=== PATIENT | female | born 1995 | race Caucasian/White ===

== ENCOUNTER 2016-08-17 11:58 | Emergency (ER) | payer BC ==
--- NOTE | ~2016-08-17 | CR21 ---
[facility] A Service of [facility] & [facility] RADIOLOGY TEXT RESULTS PATIENT: JM BARRERA LOCATION: SED : [birth year] UNIT #: [id number] AGE: [address]: Ashanti Franklin APRN SEX: F ORDER DR: [id number] [place] [id number] E MR#: [id number] Acc #: [id number] NAME: JM BARRERA : 1995 SEX: F STUDY DATE/TIME: 08/17/2016 11:15 UNIT: SED ROOM: STUDY DESCRIPTION: CR Ankle Min 3 Views Rt Attending Physician: Ashanti Franklin A.P.R.N. Ordering Physician: Ashanti Schuster A.P.R.N. Primary Care Physician: Segun Marrero M.D. MEDICAL IMAGING REPORT This report is preliminary unless electronic signature is present. EXAM Right ankle series 08/17/2016. HISTORY Missed a step. Hurt ankle. [place] one step [place] [facility] [place]. Pain, bruise, swelling lateral medial malleolus. Symptoms began yesterday. FINDINGS AP, lateral and oblique radiographs of the right ankle are presented. Normal bony mineralization. No traumatic fracture or malalignment. Small os trigonum posterior aspect of the ankle on lateral view. The ankle mortise joint is intact. No soft tissue defect, subcutaneous air or radiodense foreign body. There may be some mild soft tissue swelling adjacent to the medial malleolus. This could be simply a reflection of the patient's body habitus. Correlate with exam and mechanism of injury. Dictated by... Jeevan Jack M.D. THIS IS AN ELECTRONICALLY VERIFIED REPORT Jeevan Jack M.D. at 08/18/2016 5:56 PM Mya TD: 08/17/2016 12:49 JOB #: [id number] MEDICAL IMAGING REPORT Page 1 of 1
[~2016-08-17 11:58] MED LIST: COLACE PO; HORMONE PILL; ZOLOFT PO
== END 2016-08-17 12:50 | disposition home or self-care (01) ==
LOC: SED 11:58
DX: S93.401A Sprain of unspecified ligament of right ankle, initial encounter (principal); F32.9 Major depressive disorder, single episode, unspecified; W18.30XA Fall on same level, unspecified, initial encounter; Y92.009 Unspecified place in unspecified non-institutional (private) residence as the place of occurrence of the external cause
CPT/HCPCS: 29515; 73610; 99283

== ENCOUNTER 2016-11-09 08:05 | Emergency (ER) | payer BC ==
--- NOTE | ~2016-11-09 | CR71 ---
[facility]. [facility] A Service of [facility] & [facility] RADIOLOGY TEXT RESULTS PATIENT: JM BARRERA LOCATION: SED : [birth year] UNIT #: [id number] AGE: [address]: Carlos Perez MD SEX: F ORDER DR: [id number] [address] [address] [id number] E MR#: [id number] Acc #: [id number] NAME: JM BARRERA : 1995 SEX: F STUDY DATE/TIME: 11/09/2016 10:15 UNIT: SED ROOM: STUDY DESCRIPTION: CR Chest Single View Attending Physician: Carlos Perez M.D. Ordering Physician: Carlos Perez M.D. Primary Care Physician: Segun Marrero M.D. MEDICAL IMAGING REPORT This report is preliminary unless electronic signature is present. EXAM AP chest. HISTORY Chest pain and cough for the past 2 days. TECHNIQUE A single AP view of the chest was obtained. FINDINGS A single AP portable view of the chest shows both lungs to be clear. The heart is normal in size. The mediastinal contour is normal. No significant bone abnormalities are seen. IMPRESSION Normal portable chest. Dictated by... Liam Valdez M.D. THIS IS AN ELECTRONICALLY VERIFIED REPORT Liam Valdez M.D. at 11/10/2016 10:30 AM ISHAN/yayo TD: 11/09/2016 12:35 JOB #: [id number] MEDICAL IMAGING REPORT Page 1 of 1
--- NOTE | ~2016-11-09 | CT2 ---
[facility] A Service of [facility] RADIOLOGY TEXT RESULTS PATIENT: JM BARRERA LOCATION: SED : [birth year] UNIT #: [id number] AGE: [address]: Carlos Perez MD SEX: F ORDER DR: [id number] [address] [address] [id number] E MR#: [id number] Acc #: [id number] NAME: JM BARRERA : 1995 SEX: F STUDY DATE/TIME: 11/09/2016 10:11 UNIT: SED ROOM: STUDY DESCRIPTION: CT Abd and Pelv W Cont Attending Physician: Carlos Perez M.D. Ordering Physician: Carlos Perez M.D. Primary Care Physician: Segun Marrero M.D. MEDICAL IMAGING REPORT This report is preliminary unless electronic signature is present. EXAM Abdomen and pelvis CT with contrast HISTORY Back, chest and abdominal pain in the periumbilical area. Pain started this morning. The patient also complains of cough for the past 2 days. TECHNIQUE Axial images were obtained with intravenous contrast. This CT exam was performed with one or more of the following radiation dose reduction techniques: automatic exposure control, adjustment of mA and/or kV according to patient size, and iterative reconstruction. FINDINGS No upper abdominal solid organ abnormalities are seen. There is no evidence of retroperitoneal adenopathy or ascites and no distended bowel loops are noted. The appendix is normal. In the pelvis there is no evidence of adenopathy, mass or fluid collection. IMPRESSION Negative abdomen and pelvis CT. Dictated by... Liam Valdez M.D. THIS IS AN ELECTRONICALLY VERIFIED REPORT Liam Valdez M.D. at 11/10/2016 10:30 AM Armando TD: 11/09/2016 12:49 JOB #: [id number] [facility] A Service [facility] RADIOLOGY TEXT RESULTS PATIENT: JM BARRERA LOCATION: [facility] [place] : [birth year] UNIT #: [id number] AGE: [address]: Carlos Perez MD SEX: F ORDER DR: MEDICAL IMAGING REPORT Page 1 of 1
--- NOTE | ~2016-11-09 | EKG ---
PATIENT: JM BARRERA UNIT #: [id number] Ventricular Rate: 72 BPM Atrial Rate: 72 BPM P-R Interval: 154 ms QRS Duration: 102 ms Q-T Interval: 418 ms QTC Calculation(Bezet): 457 ms P [place]: 37 degrees Calculated R [place]: 22 degrees Calculated T [place]: 6 degrees Diagnosis Line: Normal sinus rhythm with sinus arrhythmia Diagnosis Line: Normal ECG Diagnosis Line: No previous ECGs available Diagnosis Line: Confirmed by JEFRY PYLE MD ([id number]) on Diagnosis Line: 11/10/2016 4:45:52 PM INTERPRETING MD: LASHANDA AVELAR
[2016-11-09 09:11] LABS: BASOPHIL% 0.8 % (0-2.5); EOSINOPHIL# 0.2 X10e3 (0-0.7); EOSINOPHIL% 3.3 % (0.0-7.0); HEMATOCRIT 39.9 % (35.0-45.0); HEMOGLOBIN 13.5 gm/dL (12.0-16.0); LYMPHOCYTE# 2.2 X10e3 (1.0-3.5); LYMPHOCYTE% 35.3 % (17.0-45.0); MEAN CELL VOLUME 85.6 FL (83-96); MEAN CORPUSCULAR HEMOGLOBIN 28.9 PG (28-34); MEAN CORPUSCULAR HGB CONC 33.7 g/dL (30-36); MEAN PLATELET VOLUME 7.9 FL (6.5-11.5); MONOCYTE# 0.4 X10e3 (0-1.0); MONOCYTE% 6.7 % (3.0-12.0); NEUTROPHIL# 3.4 X10e3 (1.5-7.1); NEUTROPHIL% 53.9 % (40-75); PLATELET COUNT 265 X10e3 (140-420); RED BLOOD COUNT 4.66 X10e (3.90-5.30); WHITE BLOOD COUNT 6.4 X10e3 (4.0-10.5)
[2016-11-09 09:23] LABS: POC - CKMB <1.0 ng/mL (0.0-7.9)
[2016-11-09 09:24] LABS: POC - TROPONIN <0.05 ng/mL (<=0.05)
[2016-11-09 09:25] LABS: DIFF IND NO
[2016-11-09 09:29] LABS: PARTIAL THROMBOPLASTIN TIME 25.2 SECONDS (25.6-38.1)
[2016-11-09 09:32] LABS: ALBUMIN SERUM 3.7 g/dL (3.5-5.0); ALKALINE PHOSPHATASE 61 U/L (32-92); ALT (SGPT) 11 U/L (10-40); AST (SGOT) 17 U/L (10-42); BILIRUBIN,TOTAL 0.3 mg/dL (0.2-2.0); BLOOD UREA NITROGEN 11 mg/dL (9-23); BUN/CREATININE RATIO 18.33; CALCIUM SERUM 8.4 mg/dL (8.4-10.2); CARBON DIOXIDE 25 mmol/L (22-31); CHLORIDE 100 mmol/L (100-111); CREATININE SERUM 0.6 mg/dL (0.6-1.4); GLOM FILT RATE Estimated 128.5 mL/min (>60); GLUCOSE FASTING 120 mg/dL (70-110); LIPASE 31 U/L (22-51); POTASSIUM 3.5 mmol/L (3.5-5.1); SODIUM 133 mmol/L (135-145)
[2016-11-09 09:34] LABS: BILIRUBIN, DIRECT <0.1 mg/dL (0.0-0.2); BILIRUBIN,INDIRECT 0.2 mg/dL (0.0-0.9)
[2016-11-09 11:00] LABS: URINE SOURCE CLEAN CATCH
[2016-11-09 11:02] LABS: URINE APPEARANCE CLEAR; URINE BILIRUBIN NEG (NEG); URINE BLOOD NEG (NEG); URINE COLOR YELLOW; URINE GLUCOSE NEG (NORM); URINE KETONE NEG (NEG); URINE LEUKOCYTE ESTERASE NEG (NEG); URINE NITRATE NEG (NEG); URINE PROTEIN NEG (NEG); URINE UROBILINOGEN 0.2 MG/DL (NORM)
[2016-11-09 11:11] LABS: MICRO INDICATED? NO
== END 2016-11-09 11:46 | disposition home or self-care (01) ==
LOC: SED 08:05
PROVIDERS: Emergency Medicine
DX: R10.84 Generalized abdominal pain (principal); F41.9 Anxiety disorder, unspecified; Z79.899 Other long term (current) drug therapy
CPT/HCPCS: 36415; 71010; 74177; 80048; 80076; 81003; 82553; 83690; 84484; 84703; 85025; 85610; 85730; 93005; 96372; 99285; J0500; Q9967